=== PATIENT | female | born 1980 | race Two or more races ===

== ENCOUNTER 2019-02-27 08:41 | Emergency (ER) | payer MEDICAID ==
[~2019-02-27] VITALS: Ht 160 cm; Wt 61.4 kg
[2019-02-27] MEDS ORDERED: LIDOCAINE/PF 1% 5 ML VIAL INJ ONE (09:15)
[2019-02-27 09:46] VITALS: BP 145/65
== END 2019-02-27 09:57 | disposition home or self-care (01) ==
LOC: EMS 08:46
DX: S91.312A Laceration without foreign body, left foot, initial encounter (principal); W25.XXXA Contact with sharp glass, initial encounter; Y93.89 Activity, other specified; Y92.89 Other specified places as the place of occurrence of the external cause; Y99.8 Other external cause status
CPT/HCPCS: 12001; 99283; J2001